=== PATIENT | female | born 1990 | race Hispanic/Latino ===

== ENCOUNTER → 2020-11-11 | Outpatient (CLI) | payer BC | LOC: US 07:55 | PROVIDERS: ATTEND Family Medicine | DX: R10.84 Generalized abdominal pain (principal); K76.0 Fatty (change of) liver, not elsewhere classified | CPT/HCPCS: 74246; 76700 ==

== ENCOUNTER → 2021-07-26 | Outpatient (CLI) | payer BC | LOC: MRI 08:41 | PROVIDERS: ATTEND Specialist | DX: S83.221A Peripheral tear of medial meniscus, current injury, right knee, initial encounter (principal); M70.51 Other bursitis of knee, right knee; M70.41 Prepatellar bursitis, right knee ==

== ENCOUNTER 2022-01-11 20:16 | Emergency (ER) | payer BC ==
[~2022-01-11] VITALS: Ht 162.6 cm; Wt 117.9 kg
== END 2022-01-11 22:10 | disposition home or self-care (01) ==
LOC: ER 20:33
DX: R09.89 Other specified symptoms and signs involving the circulatory and respiratory systems (principal); I10 Essential (primary) hypertension
CPT/HCPCS: 70490; 99283